=== PATIENT | male | born 1990 | race African-American/Black ===

== ENCOUNTER 2020-02-06 12:23 | Emergency (ER) | payer MEDICAID, SELFPAY ==
[2020-02-06 12:40] VITALS: BP 132/71; PULSE 85; RESP 16; TEMP 36.4; O2SAT 100
--- NOTE | 2020-02-06 12:56 | ED.BACK ---
HPI - Back Pain/Injury General Chief Complaint: Unspecified Stated Complaint: rib pain Time Seen by Provider: 02/06/20 12:46 Source: patient and RN notes reviewed Mode of arrival: ambulatory Limitations: no limitations History of Present Illness HPI Narrative: Patient presents today complaining of low back pain. Reports that he was sitting in the bathtub, tried to push himself up, but fell back down onto his buttocks this morning. Denies numbness or tingling in the extremities. States, my pelvis feels out of alignment. She describes many locations of chronic pain such as his neck, shoulders, left anterior ribs. He has been prescribed muscle relaxers and pain medication in the past. He also sees a chiropractor. He has not been followed by PCP for his chronic pain. MD elicited complaint: back pain Related Data Home Medications Medication Instructions Recorded Confirmed No Home Medications 02/06/20 02/06/20 Allergies Allergy/AdvReac Type Severity Reaction Status Date / Time No Known Allergies Allergy Verified 02/06/20 12:36 Review of Systems Review of Systems: Narrative: CONSTITUTIONAL: Denies body aches, fever, chills, or sweats. EYES: Denies visual changes, redness, or discharge. ENT: Denies rhinorrhea, congestion, sore throat, or otalgia. CARDIOVASCULAR: Denies chest pain, palpitations, or edema. RESPIRATORY: Denies cough or dyspnea. GASTROINTESTINAL: Denies abdominal pain, nausea, vomiting, or diarrhea. GENITOURINARY: Denies dysuria or hematuria. SKIN: Denies rash, itching, or wounds. MUSCULOSKELETAL: Denies joint pain, or myalgia.+ Low back pain NEUROLOGIC: Denies headache, numbness, tingling, or weakness. PSYCH: Denies depression or anxiety. [facility] Past Medical History Medical History (Updated 02/06/20 @ 13:01 by Carrie Oneil, RATE CLERK, ) Anxiety Family History Family History (Updated 02/22/16 @ 23:21 by DOCTOR UNKNOWN) Mother Hypertension Family history of elevated blood lipids Father Patient's father is in good health Sibling Patient's sister is in good health Patient's brother is in good health Other Diabetes mellitus Social History Social History Smoking status: Never smoker Alcohol intake: current Gender identity (if verbalized by the patient): Male Comments At time of signature, I have reviewed and agree with nursing past medical, surgical, social and family history unless otherwise noted. Please see nursing chart for further information. There is no relevant family history pertinent to the presenting complaint Exam Narrative: Exam Narrative: GENERAL: Well-appearing, well-nourished, and in no acute distress. HEAD: Normocephalic, atraumatic. EYES: EOMI. No redness or drainage. Conjunctivae normal. ENT: Mucous membranes pink and moist. NECK: Normal AROM. Supple. No lymphadenopathy. CHEST: No respiratory distress. MUSCULOSKELETAL: No bony tenderness of the spine. Bilateral lower lumbar paraspinal muscle tenderness. Distal sensation intact. Saddle sensation intact. Capillary refill normal. EXTREMITIES: Normal range of motion. No edema. SKIN: Warm, dry, no rash. Capillary refill normal. Normal skin turgor. NEURO: No focal deficits. Alert and oriented x3. Gait steady but guarded. PSYCH: Normal affect. No signs of depression or anxiety. Course Vital Signs Vital signs: Vital Signs Temperature 97.6 F 02/06/20 12:40 Pulse Rate 85 02/06/20 12:40 Respiratory Rate 16 02/06/20 12:40 Blood Pressure 132/71 02/06/20 12:40 Pulse Oximetry 100 02/06/20 12:40 Temperature 97.6 F 02/06/20 12:40 Pulse Rate 85 02/06/20 12:40 Respiratory Rate 16 02/06/20 12:40 Blood Pressure 132/71 02/06/20 12:40 Pulse Oximetry 100 02/06/20 12:40 Reviewed. Pt has been instructed to follow up with his PCP regarding his elevated blood pressure today. MDM - Back Pain/Injury Differential Diagnosis Differential diagnosis: Likely lumbar radic
== END 2020-02-06 13:00 | disposition home or self-care (01) ==
PROVIDERS: Emergency Provider Nurse Practitioner
DX: S39.012A Strain of muscle, fascia and tendon of lower back, initial encounter (principal); W18.30XA Fall on same level, unspecified, initial encounter
CPT/HCPCS: 99212; G0463

== ENCOUNTER 2020-02-10 18:09 | Emergency (ER) | payer MEDICAID, SELFPAY ==
--- NOTE | ~2020-02-10 | XR_ITS ---
EXAMINATION: XR chest 2V DATE: 02/10/2020 19:32 INDICATION: Left rib and clavicle pain. Fall. TECHNIQUE: Frontal and lateral views of the chest were obtained. COMPARISON: Chest single view 02/18/2007 FINDINGS: The chest demonstrates clear lungs without pneumonia, pleural effusion, or pneumothorax. Th e heart size is normal. IMPRESSION: 1. No acute cardiopulmonary disease. Reviewed, dictated and finalized at location A.
--- NOTE | ~2020-02-10 | XR_ITS ---
EXAMINATION: XR_CERV2-3V_CR DATE: 02/10/2020 19:32 INDICATION: Left neck pain. Fall in shower. TECHNIQUE: 3 views of cervical spine were obtained. COMPARISON: Cervical spine radiographs 02/19/2007 FINDINGS: There is 6 degrees levocurvature of upper cervical spine and 9 degrees dextrocurvature of c ervicothoracic spine. There is mild kyphosis of cervical spine. Vertebral body heights are normal. Th ere is mildly decreased disc height at C5-C6 and C6-C7. The facet joints are normal. No central canal stenosis or prevertebral soft tissue swelling. IMPRESSION: 1. Mild cervical spondylosis. Reviewed, dictated and finalized at location A.
[2020-02-10 18:23] VITALS: BP 145/79; PULSE 85; RESP 15; TEMP 37.2; O2SAT 100
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
[2020-02-10 20:15] VITALS: BP 138/75; PULSE 76; RESP 18; O2SAT 99
== END 2020-02-10 20:25 | disposition home or self-care (01) ==
PROVIDERS: Emergency Provider Emergency Medicine
DX: M54.2 Cervicalgia (principal); R07.81 Pleurodynia; M25.512 Pain in left shoulder; M25.551 Pain in right hip; F17.210 Nicotine dependence, cigarettes, uncomplicated
CPT/HCPCS: 71046; 72040; 99284

== ENCOUNTER 2021-06-28 16:33 | Emergency (ER) | payer OTHER, SELFPAY ==
[2021-06-28 16:45] VITALS: BP 123/77; PULSE 86; RESP 16; TEMP 36.9; O2SAT 98
--- NOTE | 2021-06-28 17:06 | ED.SKABFB ---
HPI - Skin/Abscess/Foreign Bdy General Chief complaint: Skin/Abscess/Foreign Body Stated complaint: Insect bite Time Seen by Provider: 06/28/21 17:06 Source: patient Mode of arrival: ambulatory Limitations: no limitations History of Present Illness HPI narrative: David Suarez is a 30 yo male with no PMH who comes to express care with right around the linear manner from wrist to mid forearm on the left lateral forearm. Started few days ago, patient states it is painful him to picker tender helper objects Related Data Allergies Allergy/AdvReac Type Severity Reaction Status Date / Time No Known Allergies Allergy Verified 06/28/21 16:47 Review of Systems Review of Systems: CONSTITUTIONAL: Denies fever, chills, sweats. EYES: Denies visual changes, redness, discharge. ENT: Denies rhinorrhea, congestion, sore throat, otalgia. CARDIOVASCULAR: Denies chest pain, palpitations, edema. RESPIRATORY: Denies dyspnea, wheezing, cough GASTROINTESTINAL: Denies abdominal pain, nausea, vomiting, diarrhea. GENITOURINARY: Denies dysuria, hematuria, abnormal discharge SKIN: Denies rash or itching. 3 abscesses of varying sizes on left forearm NEUROLOGIC: Denies numbness, or focal weakness. PSYCHIATRIC: Denies anxiety or depression. [facility] Past Medical History Medical History Anxiety Attention deficit hyperactivity disorder (ADHD), combined type, moderate Chronic anxiety Chronic depression Congenital kyphoscoliosis Excessive drinking alcohol Gastro-esophageal reflux disease without esophagitis Somatization disorder Tobacco use disorder, continuous Surgical History Surgical History History of surgery Family History Family History Mother Hypertension Family history of elevated blood lipids Father Patient's father is in good health Sibling Patient's sister is in good health Patient's brother is in good health Other Diabetes mellitus Social History Social History Smoking status: Current every day smoker Additional smoking assessment comments: Black and milds Alcohol intake: current Substance use: current Substance use type: marijuana Gender identity (if verbalized by the patient): Male Comments At time of signature, I agree with nursing past medical, surgical, social and family history. There is no relevant family history pertinent to the presenting complaint. Exam Narrative: GENERAL: This is a well-nourished, well-developed patient, in mild distress. HEAD: normocephalic, atraumatic. EYES: PERRL. Sclera clear/white. Vision is grossly intact. EARS: External ears normal,. Hearing grossly intact. NOSE: External nose normal without nasal discharge, nares without redness, no rhinorrhea. THROAT: Mucous membranes moist, NECK: Neck supple, non-tender CARDIOVASCULAR: Regular rate and rhythm without murmurs, gallops, or rubs. RESPIRATORY: Clear to auscultation. Breath sounds equal bilaterally. No wheezes, rales, or rhonchi. GASTROINTESTINAL: Abdomen soft, SKIN: warm, intact with no suspicious lesions or rash, good texture and turgor. 3 abscesses running from wrist to mid forearm on medial side NEURO: awake, alert, and oriented to person, place and time. There were no obvious focal neurologic abnormalities. Steady gait EXTREMITIES: Normal range of motion. BACK: Nontender without deformity Course Course Emergency Course: Patient came to [facility] for bites on left medial forearm I&D of abscess is done Started on Bactrim and Keflex, given directions on care Vital Signs Vital signs: Vital Signs Temperature 98.5 F 06/28/21 16:45 Pulse Rate 86 06/28/21 16:45 Respiratory Rate 16 06/28/21 16:45 Blood Pressure 123/77 06/28/21 16:45 Pulse Oximetry 98 06/28/21 16:45 Temperature 98.5
== END 2021-06-28 18:07 | disposition home or self-care (01) ==
PROVIDERS: Emergency Provider Nurse Practitioner
DX: L02.414 Cutaneous abscess of left upper limb (principal); F17.200 Nicotine dependence, unspecified, uncomplicated
CPT/HCPCS: 10060; 87070; 87075; 87147; 87186; 87205; 99213; G0463

== ENCOUNTER 2021-11-09 21:51 | Emergency (ER) | payer OTHER, SELFPAY ==
[2021-11-09 21:54] VITALS: BP 131/76; PULSE 86; RESP 14; TEMP 36.9; O2SAT 100
--- NOTE | 2021-11-09 22:01 | PC.NURSE ---
Pt states he has been having these pains for years. States he thinks he broke his rib years ago and, since then, he can feel it sticking out . pt also reports pain from left neck at radiates down to his toes. states his pain also started years ago, worsening tonight.
--- NOTE | 2021-11-09 22:31 | ED.GENADULT ---
HPI - General Adult General Chief complaint: Unspecified <Manasa Reich PA-C - Last Filed: 11/10/21 02:52> Stated complaint: pain <EROS Chu Last Filed: 11/10/21 02:52> Time Seen by Provider: 11/09/21 22:06 <Manasa Reich PA-C - Last Filed: 11/10/21 02:52> History of Present Illness HPI narrative: Patient is a 30-year-old male who presents emergency department with multiple, vague medical complaints. He is most concerned about some neck pain that he has been dealing with on and off for about a year. He states that I think my spinal cord is pushed over to 1 side . States the pain is in his left neck, he also reports an identical pain in his legs. He also reports issues with intermittent constipation, stating that my body is all out of whack . Last BM was today, and was non-bloody. Patient denies any psychiatric history, substance use, suicidal ideation, homicidal ideation, audial or visual hallucinations. Denies fevers, incontinence or retention of bowel or bladder, saddle anesthesia, paresthesias in his arms or legs, weakness, difficulty walking. Per chart review, patient was seen at [facility] twice for nearly identical complaints in December 2019, at which time his neck x-ray showed mild degenerative disc disease at C5-C6 and C6-C7 with mild kyphoscoliosis of the cervical/thoracic spine. <EROS Chu Last Filed: 11/10/21 02:52> Related Data Allergies/adverse reactions: Allergies Allergy/AdvReac Type Severity Reaction Status Date / Time No Known Allergies Allergy Verified 11/09/21 22:07 <EROS Chu Last Filed: 11/10/21 02:52> Review of Systems Review of Systems: Gen.: Denies fevers or chills Eyes: Denies eye pain or visual change ENT: Denies congestion Respiratory: Denies shortness of breath or cough CV: Denies chest pain or palpitations GI: Denies abdominal pain nausea, emesis or diarrhea : denies burning, urgency, frequency or hematuria Musculoskeletal: Reports neck pain. Denies muscle pain Neuro: Denies numbness, tingling, weakness or focal weakness Skin: Denies rash Except as documented, all other systems reviewed and negative <Manasa Reich PA-C - Last Filed: 11/10/21 02:52> All systems reviewed & are unremarkable except as noted in HPI and below <Manasa Reich PA-C - Last Filed: 11/10/21 02:52> [facility] Past Medical History Medical History: Medical History Anxiety Attention deficit hyperactivity disorder (ADHD), combined type, moderate Chronic anxiety Chronic depression Congenital kyphoscoliosis Excessive drinking alcohol Gastro-esophageal reflux disease without esophagitis Somatization disorder Tobacco use disorder, continuous <Manasa Reich PA-C - Last Filed: 11/10/21 02:52> Surgical History Surgical History: Surgical History History of surgery <Manasa Reich PA-C - Last Filed: 11/10/21 02:52> Family History Family History: Family History Mother Hypertension Family history of elevated blood lipids Father Patient's father is in good health Sibling Patient's sister is in good health Patient's brother is in good health Other Diabetes mellitus <Manasa Reich PA-C - Last Filed: 11/10/21 02:52> Social History Social History: Social History Smoking status: Current every day smoker Additional smoking assessment comments: Black and milds Alcohol intake: current Substance use: current Substance use type: marijuana Gender identity (if verbalized by the patient): Male <Manasa Reich PA-C - Last Filed: 11/10/21 02:52> Exam Narrative: APPEARANCE: Well appearing, no pain in dis
[2021-11-09] MEDS: IBUPROFEN 400 MG TABLET 800 MG PO (22:39)
[2021-11-09 23:46] VITALS: BP 126/82; PULSE 75; RESP 16; O2SAT 100
== END 2021-11-09 23:48 | disposition home or self-care (01) ==
PROVIDERS: Emergency Provider Emergency Medicine
DX: M54.2 Cervicalgia (principal); F17.290 Nicotine dependence, other tobacco product, uncomplicated; K21.9 Gastro-esophageal reflux disease without esophagitis
CPT/HCPCS: 99281; A9270

== ENCOUNTER 2022-03-17 11:29 | Outpatient (CLI) | payer OTHER, SELFPAY ==
--- NOTE | ~2022-03-17 | XR_ITS ---
EXAMINATION: XR chest 2V DATE: 03/17/2022 12:08 INDICATION: Left chest pain. TECHNIQUE: Frontal and lateral views of the chest were obtained on 3 radiographs. COMPARISON: Chest 2 views 02/10/2020 FINDINGS: There is mild scarring at right lung apex. No pleural effusion or pneumothorax. The heart s ize is normal. IMPRESSION: 1. Stable mild scarring at right lung apex. Reviewed, dictated and finalized at location A.
--- NOTE | ~2022-03-17 | XR_ITS ---
EXAMINATION: XR cervical spine 4-5V DATE: 03/17/2022 12:08 INDICATION: Neck pain. TECHNIQUE: 4 views of cervical spine were obtained. COMPARISON: Cervical spine radiograph 02/10/2020 FINDINGS: There is 5 degrees levocurvature of cervical spine. There is 6 degrees dextrocurvature of c ervicothoracic spine. Vertebral body heights are normal. Intervertebral disc heights are normal. The facet joints are unremarkable. No central canal stenosis or prevertebral soft tissue swelling. IMPRESSION: 1. No etiology for the patient's symptoms. Reviewed, dictated and finalized at location A.
--- NOTE | ~2022-03-17 | XR_ITS ---
EXAMINATION: XR shoulder LT min 2V DATE: 03/17/2022 12:08 INDICATION: Left shoulder pain. TECHNIQUE: 4 views of left shoulder were obtained. COMPARISON: None. FINDINGS: Bone alignment is normal. No fracture. Joint spaces are normal. IMPRESSION: 1. Normal left shoulder. Reviewed, dictated and finalized at location A. IMPRESSION: 1. Normal left shoulder.
== END 2022-03-17 11:30 | disposition home or self-care (01) ==
LOC: ANHIMG 11:35
PROVIDERS: PCP Emergency Medicine; Visit Provider Emergency Medicine
DX: R07.9 Chest pain, unspecified (principal); M54.2 Cervicalgia; M25.512 Pain in left shoulder
CPT/HCPCS: 71046; 72050; 73030

== ENCOUNTER 2023-04-12 15:47 | Emergency (ER) | payer OTHER, SELFPAY ==
--- NOTE | ~2023-04-12 | CT_ITS ---
EXAMINATION: CT brain wo con DATE: 04/12/2023 18:45 INDICATION: Persistent headaches TECHNIQUE: Computed tomography (CT) of the head was performed without intravenous contrast. Sagittal and coronal reconstructions were performed. The mA was adjusted according to patient size. Iterative reconstruction technique was employed. The dose-length product was 605.33 mGy-cm. COMPARISON: head CT dated 11/28/2010 FINDINGS: No acute intracranial hemorrhage, acute infarction or abnormal extra axial fluid collection. Ventricl es are normal and symmetric. No mass/mass effect. Mucosal thickening in the bilateral ethmoid sinuses . The orbits and mastoid air cells are normal. IMPRESSION: 1. Normal brain. No acute intracranial process. 2. Chronic sinusitis. Reviewed, dictated and finalized at location A.
--- NOTE | ~2023-04-12 | XR_ITS ---
EXAMINATION: XR ribs LT 2V w CXR 2V DATE: 04/12/2023 18:37 INDICATION: Shortness of breath and left-sided rib pain TECHNIQUE: PA and lateral views of the chest and 3 views of the left ribs were obtained. COMPARISON: Chest radiograph dated 03/17/22 FINDINGS: No rib fractures identified. The lungs remain clear with no focal airspace opacities, pulmonary edema , pleural effusion or pneumothorax. Cardiomediastinal silhouette is normal. Mild thoracic spondylosis . Normal bowel gas pattern. IMPRESSION: 1. No rib fracture or acute cardiopulmonary disease. Reviewed, dictated and finalized at location A.
--- NOTE | ~2023-04-12 | CT_ITS ---
EXAMINATION: CT cervical spine wo con DATE: 04/12/2023 18:44 INDICATION: Left-sided neck pain TECHNIQUE: Computed tomography (CT) of the cervical spine was performed without intravenous contrast. Automated exposure control and iterative reconstruction technique were employed. The dose-length pro duct was 394.14 mGy-cm. COMPARISON: Cervical spine radiographs dated 03/17/[address] dated 02/12/2011 FINDINGS: Mild kyphosis and 13 degree dextrocurvature of the lower cervical spine. 10 degree upper cervical lev ocurvature. Vertebral body heights are normal. No fracture. Disc heights are normal. 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 Cervical uncovertebral joints and remaining cervical face t joints are normal. No cervical central canal or neural foraminal stenosis. There is focal skin thic kening and underlying subcutaneous stranding along the midline posterior to the spinous processes at the lower cervical and upper thoracic spine. This appears without significant change since 02/12/2011. Visualized apices of lungs are clear. IMPRESSION: 1. Mild S-shaped curvature of the cervical spine without significant spondylosis. 2. Nonspecific chronic skin thickening and underlying subcutaneous edema of indeterminate etiology al yovani the midline posterior to the lower cervical and upper thoracic spine which is unchanged since 01/25. Reviewed, dictated and finalized at location A. IMPRESSION: 1. Mild S-shaped curvature of the cervical spine without significant spondylosi s. 2. Nonspecific chronic skin thickening and underlying subcutaneous edema of ind eterminate etiology along the midline posterior to the lower cervical and upper thoracic spine which is unchanged since 02/12/2011.
[2023-04-12 15:49] VITALS: BP 136/100; PULSE 70; RESP 18; TEMP 37; O2SAT 99
--- NOTE | 2023-04-12 15:52 | ECG_ITS ---
Measurements Intervals [place] Rate: 73 P: 68 [place]: 166 QRS: 60 QRSD: 92 T: 69 QT: 369 QTc: 408 Interpretive Statements SINUS RHYTHM ST ELEVATION IN ANTEROLAT/INF LEADS- PROBABLY EARLY REPOLARIZATION ABNORMALITY BASELINE ARTIFACT- I, III, AVL, V5-V6 BORDERLINE ECG NO PREVIOUS ECG AVAILABLE FOR COMPARISON Electronically Signed On 04-12-2023 16:08:33 CDT by Maury Badillo D.O.
[2023-04-12 17:36] VITALS: PULSE 60; O2SAT 100
--- NOTE | 2023-04-12 17:36 | ED.SOB ---
HPI - SOB/Dyspnea General Chief Complaint: Shortness of Breath/Dyspnea Stated Complaint: arm stiffness, sob Time Seen by Provider: 04/12/23 17:32 Source: patient and old records reviewed Mode of arrival: ambulatory Limitations: no limitations History of Present Illness HPI Narrative: Patient is a 32-year-old male who presents to the ED with multiple complaints. Patient reports having pain in his left-sided neck intermittently for the last 2 years. He states the pain causes a shooting pain that goes into his head and down his entire body. He does complain of a headache currently. He states his left arm often feels stiff. He states he has seen several doctors previously for this and been told there were no abnormalities. He had a MRI at the [facility] in [place] 7 months ago which he reports was normal. He states he has been referred to a psychiatrist, given anxiety medication but denies improvement. He does admit to feeling anxious currently. He has not tried contacting his doctor recently about this pain. He has not tried anything for the pain. He also reports having pain to his left ribs and mild shortness of breath. Reports occasional chest tightness. Denies dizziness, lightheadedness, lower extremity pain or swelling, abdominal pain, nausea, vomiting. Denies fevers. Per records, patient has history of anxiety and somatization disorder. Related Data Home Medications Medication Instructions Recorded Confirmed cholecalciferol (vitamin D3) 10 10 mcg PO DAILY 04/03/22 04/17/22 mcg (400 unit) capsule Allergies Allergy/AdvReac Type Severity Reaction Status Date / Time No Known Allergies Allergy Verified 04/03/22 16:09 Review of Systems Review of Systems: CONSTITUTIONAL: Denies fever, chills, or sweats. CARDIOVASCULAR: See HPI. RESPIRATORY: See HPI. GASTROINTESTINAL: Denies abdominal pain, nausea, vomiting. MUSCULOSKELETAL: See HPI. NEUROLOGIC: See HPI. All systems reviewed & are unremarkable except as noted in HPI and below PMFSH Past Medical History Medical History Anxiety Attention deficit hyperactivity disorder (ADHD), combined type, moderate Chronic anxiety Chronic depression Congenital kyphoscoliosis Excessive drinking alcohol Gastro-esophageal reflux disease without esophagitis Somatization disorder Tobacco use disorder, continuous Surgical History Surgical History H/O foot surgery History of surgery History of surgery on lower extremity Family History Family History Mother Hypertension Family history of elevated blood lipids Father Patient's father is in good health Sibling Patient's sister is in good health Patient's brother is in good health Other Cancer Diabetes mellitus Social History Social History Smoking status: Current every day smoker Additional smoking assessment comments: Black and milds Alcohol intake: current Substance use: current Substance use type: marijuana Gender identity (if verbalized by the patient): Male Exam Narrative: GENERAL: Anxious appearing, well-nourished, non-toxic, in no acute distress. HEAD: Normocephalic, atraumatic. NECK: Supple. No adenopathy, no masses. No meningeal signs. Tenderness to palpation over left-sided paraspinal musculature into upper trapezius region. No significant midline spinal tenderness. RESPIRATORY: Airway patent, respirations nonlabored. Clear to auscultation bilaterally, no rales, rhonchi, wheezing. No pleuritic pain or splinting. CARDIOVASCULAR: Regular rate and rhythm without murmurs, rubs, or gallops. Radial pulses 2+ and equal bilaterally. ABDOMINAL: Soft, no tenderness throughout abdomen, nondistended, no hepatosplenomegaly. Normoactive BS. MUSCULOSKELETAL:
[2023-04-12 18:35] LABS: Basophils Absolute Auto 0.1 K/mm3 (0.0-0.1); Basophils Percent Auto 0.7 % (0.2-1.2); Eosinophils Absolute Auto 0.4 K/mm3 (0-0.3); Eosinophils Percent Auto 5.2 % (0-4.4); Hematocrit 41.6 % (42.0-52.0); Hemoglobin 13.7 g/dL (14.0-18.0); Immature Granulocyte Absolute 0.02 K/mm3 (0.00-0.031); Immature Granulocyte Percent A 0.2 % (0-0.5); Lymphocytes Absolute Auto 3.27 K/mm3 (0.9-3.2); Lymphocytes Percent Auto 40.8 % (18.3-44.2); Mean Corpuscular HGB Conc 32.9 g/dl (32-36); Mean Corpuscular Hemoglobin 28.1 pg (26-34); Mean Corpuscular Volume 85.2 fl (80-100); Mean Platelet Volume 8.9 fl (7.4-10.4); Monocytes Absolute Auto 0.9 K/mm3 (0.1-0.6); Monocytes Percent Auto 11.4 % (2.6-8.5); Neutrophils Absolute Auto 3.3 K/mm3 (1.3-6.7); Neutrophils Percent Auto 41.7 % (45.5-73.1); Platelet Count Result 273 k/mm3 (150-375); Red Blood Count 4.88 M/mm3 (4.6-6.20); Red Cell Distribution Width 12.7 % (11.5-14.5)
[2023-04-12 18:44] LABS: Ethanol < 10 mg/dL (<10)
[2023-04-12 18:45] LABS: Alanine Aminotransferase 21 U/L (6-50); Albumin Level 4.4 g/dL (3.5-5.1); Alkaline Phosphatase 59 U/L (38-126); Anion Gap 7 mmol/L (8-16); Aspartate Amino Transferase 23 U/L (17-59); Bilirubin,Total 0.4 mg/dL (0.2-1.3); Blood Urea Nitrogen 8 mg/dL (9-20); Calcium 9.3 mg/dL (8.4-10.2); Carbon Dioxide 30 mmol/L (22-30); Chloride 101 mmol/L (98-107); Estimated CRCL calculation 107 ml/min; Estimated Glomerular Filt Rate > 60; Glucose 89 mg/dL (65-110); Magnesium 2.3 mg/dL (1.6-2.3); Potassium 4.3 mmol/L (3.4-5.0); Sodium 138 mmol/L (137-145)
[2023-04-12] MEDS: ACETAMINOPHEN 500 MG TABLET 1000 MG PO (18:50)
[2023-04-12 18:56] LABS: Troponin I < 0.012 ng/mL (0.000-0.034)
[2023-04-12 19:55] LABS: Appearance Urine Clear (Clear); Bilirubin Urine Negative (Negative); Blood Urine Negative (Negative); Color Urine Yellow (Yellow); Glucose Urine UA Negative (Negative); Ketones Urine Negative (Negative); Leukocyte Esterase Ur Negative LEU/UL (Negative); Nitrate Urine Negative (Negative); Protein Urine Negative (Negative); Specific Grav Ur 1.008 (1.001-1.035); Urobilinogen Urine 0.2 mg/dL (<2.0)
[2023-04-12 20:02] LABS: Add Urine Microscopic? NO
[2023-04-12 20:11] LABS: Barbiturate Screen Urine Negative (Negative); Benzodiazepines Screen Urine Negative (Negative)
[2023-04-12 20:13] LABS: Cannabinoid Screen Urine Negative (Negative); Cocaine Screen Urine Negative (Negative); Methadone Screen Urine Negative (Negative); Opiate Screen Urine Negative (Negative); Phencyclidine Screen Urine Negative (Negative)
[2023-04-12] MEDS: KETOROLAC (*BKC) 60 MG/2 ML VIAL IM (20:26)
[2023-04-12 20:36] LABS: Amphetamine Screen Urine Negative (Negative)
[2023-04-12 20:53] VITALS: BP 122/76; PULSE 59; RESP 18; TEMP 36.6; O2SAT 100
== END 2023-04-12 21:04 | disposition home or self-care (01) ==
PROVIDERS: Emergency Provider Physician Assistant; PCP Emergency Medicine
DX: M54.2 Cervicalgia (principal); F41.9 Anxiety disorder, unspecified; R06.81 Apnea, not elsewhere classified; F17.290 Nicotine dependence, other tobacco product, uncomplicated; F12.90 Cannabis use, unspecified, uncomplicated
CPT/HCPCS: 36415; 70450; 71046; 71100; 72125; 80053; 80307; 81003; 83735; 84484; 85025; 93005; 96372; 99284; A9270; J1885

== ENCOUNTER 2023-05-08 14:37 | Outpatient (CLI) | payer OTHER, SELFPAY ==
[2023-05-08 15:02] LABS: Basophils Percent Auto 0.7 % (0.2-1.2); Eosinophils Absolute Auto 0.2 K/mm3 (0-0.3); Eosinophils Percent Auto 3.7 % (0-4.4); Hematocrit 42.5 % (42.0-52.0); Hemoglobin 13.7 g/dL (14.0-18.0); Immature Granulocyte Absolute 0.01 K/mm3 (0.00-0.031); Immature Granulocyte Percent A 0.2 % (0-0.5); Lymphocytes Absolute Auto 2.13 K/mm3 (0.9-3.2); Lymphocytes Percent Auto 35.6 % (18.3-44.2); Mean Corpuscular HGB Conc 32.2 g/dl (32-36); Mean Corpuscular Hemoglobin 27.5 pg (26-34); Mean Corpuscular Volume 85.3 fl (80-100); Mean Platelet Volume 8.9 fl (7.4-10.4); Monocytes Absolute Auto 0.7 K/mm3 (0.1-0.6); Monocytes Percent Auto 11.2 % (2.6-8.5); Neutrophils Absolute Auto 2.9 K/mm3 (1.3-6.7); Neutrophils Percent Auto 48.6 % (45.5-73.1); Platelet Count Result 235 k/mm3 (150-375); Red Blood Count 4.98 M/mm3 (4.6-6.20); Red Cell Distribution Width 12.4 % (11.5-14.5)
[2023-05-08 16:26] LABS: Iron 128 ug/dL (49-181)
[2023-05-08 16:37] LABS: Percent Iron Saturation 48 % (20-50)
[2023-05-08 16:39] LABS: Alanine Aminotransferase 17 U/L (6-50); Albumin Level 4.6 g/dL (3.5-5.1); Alkaline Phosphatase 63 U/L (38-126); Anion Gap 8 mmol/L (8-16); Aspartate Amino Transferase 23 U/L (17-59); Bilirubin,Total 0.6 mg/dL (0.2-1.3); Blood Urea Nitrogen 8 mg/dL (9-20); Calcium 9.2 mg/dL (8.4-10.2); Carbon Dioxide 27 mmol/L (22-30); Chloride 102 mmol/L (98-107); Estimated Glomerular Filt Rate > 60; Glucose 97 mg/dL (65-110); Lactate Dehydrogenase 141 U/L (120-246); Potassium 3.9 mmol/L (3.4-5.0); Sodium 137 mmol/L (137-145)
[2023-05-08 17:45] LABS: Folic Acid 14.4 ng/mL (2.76->20)
[2023-05-11 22:37] LABS: Methylmalonic Acid 105 nmol/L (87-318)
== END 2023-05-08 14:38 | disposition home or self-care (01) ==
PROVIDERS: PCP Emergency Medicine; Visit Provider Internal Medicine Hematology & Oncology
DX: D64.9 Anemia, unspecified (principal)
CPT/HCPCS: 36415; 80053; 82607; 82746; 83540; 83550; 83615; 83921; 85025

== ENCOUNTER 2023-12-10 15:33 | Outpatient (CLI) | payer OTHER, SELFPAY ==
[2023-12-10 15:44] LABS: Basophils Absolute Auto 0.1 K/mm3 (0.0-0.1); Basophils Percent Auto 0.6 % (0.2-1.2); Eosinophils Absolute Auto 0.5 K/mm3 (0-0.3); Eosinophils Percent Auto 6.3 % (0-4.4); Hematocrit 43.2 % (42.0-52.0); Hemoglobin 14.4 g/dL (14.0-18.0); Immature Granulocyte Absolute 0.01 K/mm3 (0.00-0.031); Immature Granulocyte Percent A 0.1 % (0-0.5); Lymphocytes Absolute Auto 2.41 K/mm3 (0.9-3.2); Lymphocytes Percent Auto 28.3 % (18.3-44.2); Mean Corpuscular HGB Conc 33.3 g/dl (32-36); Mean Corpuscular Hemoglobin 27.7 pg (26-34); Mean Corpuscular Volume 83.2 fl (80-100); Mean Platelet Volume 9.3 fl (7.4-10.4); Monocytes Absolute Auto 0.8 K/mm3 (0.1-0.6); Monocytes Percent Auto 9.4 % (2.6-8.5); Neutrophils Absolute Auto 4.7 K/mm3 (1.3-6.7); Neutrophils Percent Auto 55.3 % (45.5-73.1); Platelet Count Result 263 k/mm3 (150-375); Red Blood Count 5.19 M/mm3 (4.6-6.20); Red Cell Distribution Width 12.7 % (11.5-14.5); White Blood Count 8.5 K/mm3 (4.5-10.0)
[2023-12-10 17:17] LABS: Alanine Aminotransferase 19 U/L (6-50); Albumin Level 4.6 g/dL (3.5-5.1); Alkaline Phosphatase 69 U/L (38-126); Anion Gap 10 mmol/L (4-12); Aspartate Amino Transferase 24 U/L (17-59); Bilirubin,Total 0.5 mg/dL (0.2-1.3); Blood Urea Nitrogen 14 mg/dL (9-20); Calcium 9.2 mg/dL (8.4-10.2); Carbon Dioxide 24 mmol/L (22-30); Chloride 106 mmol/L (98-107); Estimated Glomerular Filt Rate > 60; Glucose 88 mg/dL (65-110); Lactate Dehydrogenase 154 U/L (120-246); Potassium 4.3 mmol/L (3.4-5.0); Sodium 140 mmol/L (137-145)
[2023-12-10 17:24] LABS: Iron 91 ug/dL (49-181)
[2023-12-10 17:39] LABS: Percent Iron Saturation 33 % (20-50)
[2023-12-10 18:19] LABS: Folic Acid 14.3 ng/mL (2.76->20)
== END 2023-12-10 15:34 | disposition home or self-care (01) ==
LOC: ANHLAB 15:35
PROVIDERS: PCP Emergency Medicine; Visit Provider Internal Medicine Hematology & Oncology
DX: D64.9 Anemia, unspecified (principal)
CPT/HCPCS: 36415; 80053; 82607; 82746; 83540; 83550; 83615; 85025

== ENCOUNTER 2023-12-17 15:23 | Outpatient (CLI) | payer OTHER, SELFPAY ==
[2023-12-17 15:37] LABS: Basophils Absolute Auto 0.1 K/mm3 (0.0-0.1); Basophils Percent Auto 0.6 % (0.2-1.2); Eosinophils Absolute Auto 0.4 K/mm3 (0-0.3); Eosinophils Percent Auto 5.4 % (0-4.4); Hematocrit 42.2 % (42.0-52.0); Hemoglobin 13.7 g/dL (14.0-18.0); Immature Granulocyte Absolute 0.02 K/mm3 (0.00-0.031); Immature Granulocyte Percent A 0.3 % (0-0.5); Lymphocytes Percent Auto 33.2 % (18.3-44.2); Mean Corpuscular HGB Conc 32.5 g/dl (32-36); Mean Corpuscular Hemoglobin 27.8 pg (26-34); Mean Corpuscular Volume 85.8 fl (80-100); Mean Platelet Volume 9.4 fl (7.4-10.4); Monocytes Absolute Auto 0.8 K/mm3 (0.1-0.6); Monocytes Percent Auto 10.5 % (2.6-8.5); Neutrophils Absolute Auto 3.9 K/mm3 (1.3-6.7); Platelet Count Result 233 k/mm3 (150-375); Red Blood Count 4.92 M/mm3 (4.6-6.20); Red Cell Distribution Width 12.6 % (11.5-14.5); White Blood Count 7.8 K/mm3 (4.5-10.0)
[2023-12-17 17:45] LABS: Anion Gap 6 mmol/L (4-12); Blood Urea Nitrogen 13 mg/dL (9-20); Calcium 9.1 mg/dL (8.4-10.2); Carbon Dioxide 29 mmol/L (22-30); Chloride 105 mmol/L (98-107); Estimated Glomerular Filt Rate > 60; Glucose 88 mg/dL (65-110); Potassium 4.4 mmol/L (3.4-5.0); Sodium 140 mmol/L (137-145)
== END 2023-12-17 15:24 | disposition home or self-care (01) ==
LOC: ANHLAB 15:25
PROVIDERS: PCP Emergency Medicine; Visit Provider Internal Medicine Hematology & Oncology
DX: D72.820 Lymphocytosis (symptomatic) (principal)
CPT/HCPCS: 36415; 80048; 85025; 88184